=== PATIENT | male | born 1980 | race Caucasian/White ===

== ENCOUNTER 2016-11-20 18:59 | Inpatient (IN) | payer BC ==
[~2016-11-20] VITALS: Ht 185.4 cm; Wt 94.8 kg
--- NOTE | ~2016-11-20 | CO ---
Unit #: [id number] #: [id number] Patient: LAWANDA MONTALVO [id number] [facility] [address] [place] [address] [id number] I MR#: [id number] NAME: LAWANDA MONTALVO ROOM: 85 Age: 36 Sex: M Admission Date: 11/20/2016 : 1980 Attending Physician: Nitin Mcdonald M.D. Consultation Date: 11/21/2016 CONSULTATION REPORT REASON FOR ADMISSION Suicidal ideation/acute psychiatric inpatient admission. HISTORY OF PRESENT ILLNESS The patient is a 36-year-old male with increased suicidal ideation, was planning to jump off a bridge, was thus transferred to [facility] for evaluation. PAST MEDICAL HISTORY None. PAST SURGICAL HISTORY None. HOME MEDICATIONS None. ALLERGIES No known drug allergies. FAMILY HISTORY Father, alcohol abuse and cousin, schizophrenia. SOCIAL HISTORY Positive alcohol abuse. Negative tobacco use. REVIEW OF SYSTEMS Depressed affect noted, otherwise as per HPI. Twelve point was reviewed in detail with the patient. PHYSICAL EXAMINATION GENERAL: Awake, alert, oriented to person, place, and time. Well built, well nourished. Does not appear to be in any acute distress. VITAL SIGNS: Temperature 98.7, blood pressure 177/93, respiratory rate 18, and pulse 65. HEAD: Atraumatic. Normocephalic. EYES: Bilateral extraocular muscles are normal. Pupils equal, reactive to light and accommodation. Sclerae are normal. No jaundice. NECK: Neck is supple. No neck rigidity. No thyromegaly. No carotid bruit. No JVD. Oral mucosa is moist. CHEST: Bilateral vesicular breathing. Clear to auscultation. No basilar rales. CARDIOVASCULAR: S1 and S2 normal. No murmur, no gallop, no rub. ABDOMEN: Soft, nontender. No organomegaly. Bowel sounds are normal. No Unit #: [id number] #: [id number] Patient: LAWANDA MONTALVO hernia, no masses, no rebound, no guarding. EXTREMITIES: No pitting edema. No calf tenderness. Extremity pulses, including dorsalis pedis, have good volume. BACK: Normal spine curvature. No spine tenderness. No costovertebral angle tenderness. PULP GRINDER FEEDER: Cranial nerves normal bilaterally. Motor function bilaterally symmetric and normal. Sensory system normal. SKIN: Warm and dry. ADMITTING IMPRESSION Acute psychiatric inpatient admission. PLAN As per psychiatrist. Medical conditions stable. Medical prognosis fair. There are no medical contraindications to the patient participating in activities while here at [facility]. Dictated by... Landen Velasco M.D. HUANG/neelam TD: 11/21/2016 17:12 JOB #: [id number] CONSULTATION REPORT Page 1 of 1 X Landen Velasco MD X CONSULTATION REPORT
--- NOTE | ~2016-11-20 | PN ---
Unit #: [id number] #: [id number] Patient: LAWANDA MONTALVO [id number] [facility] [address] [place] [address] [id number] MR#: [id number] NAME: LAWANDA MONTALVO ROOM: [facility] Age: 36 Sex: M Admission Date: 11/20/2016 : 1980 Attending Physician: Nitin Mcdonald M.D. Admitting Physician: Tomas Carreon PROGRESS NOTES DATE 11/24/2016 DISCUSSION The patient is a bit brighter today and is reporting significant reduction in suicidal ideation. He is scheduled for his couples therapy session on , and discharge should take place thereafter. Dictated by... Nitin Mcdonald M.D. CB/sal TD: 11/24/2016 13:29 JOB #: [id number] [facility] PROGRESS NOTES Page 1 of 1 X Nitin Mcdonald MD X PROGRESS NOTE
--- NOTE | ~2016-11-20 | PN ---
Unit #: [id number] #: [id number] Patient: LAWANDA MONTALVO [id number] [facility] [address] [place] [address] [id number] MR#: [id number] NAME: LAWANDA MONTALVO ROOM: [facility]6 Age: 36 Sex: M Admission Date: 11/20/2016 : 1980 Attending Physician: Nitin Mcdonald M.D. Admitting Physician: Tomas Carreon PROGRESS NOTES DATE 11/22/2016 DISCUSSION The patient is in slightly better spirits today and is reporting some reduction in suicidal ideation at the time he (1)____ spoken with his and expresses grave concerns regarding this. He has not yet been transferred to [address] [place] [address]. We will hope that this can take place as well as a marital couples therapy session prior to consideration of discharge which could take place as early as tomorrow with completion of the couples therapy session. Dictated by... Nitin Mcdonald M.D. CB/marlene TD: 11/22/2016 21:27 JOB #: [id number] [facility] PROGRESS NOTES Page 1 of 1 X Nitin Mcdonald MD X PROGRESS NOTE
--- NOTE | ~2016-11-20 | DS ---
Unit #: [id number] #: [id number] Patient: LAWANDA MONTALVO [id number] [facility] [address] [place] [address] [id number] MR#: [id number] NAME: LAWANDA MONTALVO ROOM: [facility] Age: 36 Sex: M Admission Date: 11/20/2016 : 1980 Discharge Date: 11/25/2016 Attending Physician: Nitin Mcdonald M.D. DISCHARGE SUMMARY REASON FOR ADMISSION Patient is a 36-year-old white male admitted to the hospital with increasing depression and suicidal ideation related to marital issues. HOSPITAL COURSE The patient was initially admitted to the [facility] but was transferred to the [address] [place] [address]. He was begun on Lexapro 10 mg daily which he tolerated without complaint. The patient actively participated within the therapeutic milieu and showed tremendous improvement in mood symptoms during his brief stay in the hospital. He and his had a positive family therapy session on 11/25/2016 and the patient was agreeable with a plan for discharge at that time with followup to take place in the intensive outpatient program provided by this facility. Discharge was ordered. DISCHARGE DIAGNOSES Major depressive disorder recurrent moderate. DISPOSITION ON DISCHARGE The patient is discharged on the following medications Lexapro 10 mg daily for depression. Followup to take place through the auspices of the intensive outpatient program provided by this facility. The patient's prognosis is considered good. Dictated by... Nitin Mcdonald M.D. CB/marlene TD: 11/26/2016 03:27 JOB #: [id number] Unit #: [id number] #: [id number] Patient: LAWANDA MONTALVO DISCHARGE SUMMARY Page 1 of 1 X Nitin Mcdonald MD X DISCHARGE SUMMARY
--- NOTE | ~2016-11-20 | PA ---
Unit #: [id number] #: [id number] Patient: LAWANDA MONTALVO [id number] [facility] [address] [place] [address] [id number] I MR#: [id number] NAME: LAWANDA MONTALVO ROOM: 85 Age: 36 Sex: M Admission Date: 11/20/2016 : 1980 Date of Assessment: 11/21/2016 Attending Physician: Nitin Mcdonald M.D. Admitting Physician: Nitin Mcdonald M.D. PSYCHIATRIC ASSESSMENT IDENTIFYING INFORMATION The patient is a 36-year-old white male admitted with positive suicidal and plan to jump off of a bridge. CHIEF COMPLAINT I reached my breaking point. INFORMANT The patient, reliability is good. HISTORY OF PRESENT ILLNESS The patient is a 36-year-old white male admitted to [address] [place] [address] after he had presented to this facility voicing positive suicidal ideation. The patient had gone so far as to consider jumping from a bridge in the [facility] area but had stopped himself. The patient denies prior inpatient psychiatric treatment. He does report that he was treated for attention deficit disorder as an adolescent but is currently on no prescribed psychotropic or other medications. The patient reports that his major stressor is a strained relationship with his of 13 years. He reports that she "shuts down" and becomes tearful when discussing their marital situation. The patient is a father of three children ages 9 through 15. He is employed part-time doing sofia and carpet work. He denies any use of alcohol, tobacco or street drugs. He denies any recent changes in sleep or appetite. He continues to endorse hopelessness and suicidal ideation when seen today. PAST PSYCHIATRIC HISTORY As above. PAST MEDICAL HISTORY Significant for a history of malformation of the patient's bicuspid valve discovered last year on a routine echo. MEDICATIONS None. ALLERGIES None. FAMILY HISTORY The patient reports a positive family history of depressive illness. SOCIAL HISTORY Unit #: [id number] #: [id number] Patient: LAWANDA MONTALVO The patient lives with his and three children. He completed two years of college. He is now employed part-time doing cris and carpet work. He denies use of alcohol, tobacco or street drugs. MENTAL STATUS EXAMINATION At this time reveals the patient to be a well-developed, well-nourished white male, appearing his stated age. He is in no apparent physical distress at the time of examination. He is awake, alert, and oriented in all spheres. His mood is dysphoric and tearful. His affect congruent. Speech is generally relevant and coherent. There are no gross deficits in memory or cognition noted. Intelligence is judged to be in the average range based on fund of knowledge. The patient is cooperative throughout the interview. He is currently endorsing positive suicidal ideation. He denies homicidal ideation. He denies antipsychotic symptoms. His judgment and insight appear to be intact. The patient's assets motivation for change. Liabilities lack of resources. DIAGNOSTIC IMPRESSION Major depressive disorder single episode moderate, attention deficit disorder by history, bicuspid valve malformation by history. TREATMENT PLAN The patient remains hospitalized for safety and stabilization. We will begin a trial of Lexapro 10 mg daily to address depressive symptoms. I will attempt to transfer the patient to the [address] [place] [address] unit in an as timely fashion as possible and we will also ask for a couple's therapy session to take place. ESTIMATED LENGTH OF STAY Three to five days with followup to take place in the intensive outpatient program provided by this facility. Dictated by... Nitin Mcdonald M.D. GEORGINA/marlene TD: 11/21/2016 23:01 JOB #: [id number] PSYCHIATRIC ASSESSMENT Page 1 of 1 X Nitin Mcdonald MD X PSYCHIATRIC ASSESSMENT
--- NOTE | ~2016-11-20 | PN ---
Unit #: [id number] #: [id number] Patient: LAWANDA MONTALVO [id number] [facility] [address] [place] [address] [id number] I MR#: [id number] NAME: LAWANDA MONTALVO ROOM: [facility] Age: 36 Sex: M Admission Date: 11/20/2016 : 1980 Attending Physician: Nitin Mcdonald M.D. Admitting Physician: Tomas Carreon PROGRESS NOTES DATE 11/23/2016 DISCUSSION The patient continues to endorse feelings of hopelessness and suicidal ideation though he states that he has been in contact with his and is somewhat encouraged by this. We continue to await a couple's therapy session and continue current pharmacotherapy. Suicide precautions are in place given the patient's ongoing threats of self-harm. Dictated by... Nitin Mcdonald M.D. CB/dangelo TD: 11/23/2016 13:10 JOB #: [id number] [facility] PROGRESS NOTES Page 1 of 1 X Nitin Mcdonald MD PROGRESS NOTE
[2016-11-21 11:01] LABS: BASOPHIL% 0.6 % (0-2.5); EOSINOPHIL# 0.4 X10e3 (0-0.7); EOSINOPHIL% 5.9 % (0.0-7.0); HEMOGLOBIN 13.9 gm/dL (13.0-16.0); LYMPHOCYTE# 2.1 X10e3 (1.0-3.5); LYMPHOCYTE% 33.2 % (17.0-45.0); MEAN CORPUSCULAR HEMOGLOBIN 27.9 PG (28-34); MEAN CORPUSCULAR HGB CONC 33.2 g/dL (30-36); MONOCYTE# 0.6 X10e3 (0-1.0); MONOCYTE% 9.8 % (3.0-12.0); NEUTROPHIL# 3.2 X10e3 (1.5-7.1); NEUTROPHIL% 50.5 % (40-75); PLATELET COUNT 173 X10e3 (140-420); RED CELL DISTRIBUTION WIDTH 14.4 % (11.0-15.5); WHITE BLOOD COUNT 6.4 X10e3 (4.0-10.5)
[2016-11-21 11:09] LABS: DIFF IND NO
[2016-11-21 11:59] LABS: BUN/CREATININE RATIO 17.5; CALCIUM SERUM 8.9 mg/dL (8.4-10.2); CREATININE SERUM 0.8 mg/dL (0.6-1.4); PROTEIN TOTAL SERUM 6.5 g/dL (6.0-8.3)
[2016-11-22 09:46] LABS: URINE APPEARANCE TURBID; URINE BILIRUBIN NEG (NEG); URINE BLOOD NEG (NEG); URINE COLOR YELLOW; URINE GLUCOSE NEG (NEG); URINE KETONE 1+ (NEG); URINE LEUKOCYTE ESTERASE NEG (NEG); URINE NITRATE NEG (NEG); URINE PH 5.5 (5-8); URINE PROTEIN NEG (NEG); URINE SPECIFIC GRAVITY 1.023 (1.003-1.035); URINE UROBILINOGEN 0.2 MG/DL (NEG)
[2016-11-22 10:34] LABS: AMPHETAMINE NEG (NEG); BARBITURATES NEG (NEG); BENZODIAZEPINES NEG (NEG); COCAINE NEG (NEG); MARIJUANA NEG (NEG); OPIATES NEG (NEG); TRICYCLIC ANTIDEPRESSANTS NEG (NEG); U METHADONE NEG (NEG)
== END 2016-11-25 15:47 | disposition home or self-care (01) | DRG 885 ==
LOC: P2L 18:59 → P1E 18:59 → P2L 11-22 16:10
PROVIDERS: Specialist
DX: F32.1 Major depressive disorder, single episode, moderate (principal); R45.851 Suicidal ideations; F98.8 Other specified behavioral and emotional disorders with onset usually occurring in childhood and adolescence; Z81.1 Family history of alcohol abuse and dependence
CPT/HCPCS: 80053; 80307; 81003; 85025